=== PATIENT | female | born 1930 | race Caucasian/White ===

== ENCOUNTER 2017-05-07 15:10 | Inpatient (IN) | payer MEDICARE, OTHER ==
[2017-05-07] MEDS ORDERED: Fentanyl 100 MCG/2 ML VIAL ONE (15:59)
[2017-05-07 16:14] LABS: #Basophils 0.1 thou/uL (0.0-0.2); #Eosinphils 0.1 thou/uL (0.0-0.7); #Lymphocytes 3.9 thou/uL (1.20-3.40); #Monocytes 1.7 thou/uL (0.11-0.59); #Neutrophils 10.1 thou/uL (1.40-6.50); %Basophils 0.4 % (0.0-1.0); %Eosinophils 0.7 % (0.0-10.0); %Lymphocytes 24.7 % (21.0-51.0); %Neutrophils 63.3 % (42.0-75.0); Hemoglobin 13.1 g/dL (12.0-16.0); Mean Corpuscular HGB CONC 31.4 g/dL (32.0-36.0); Mean Corpuscular Volume 79.7 fl (81.0-99.0); Mean Platelet Volume 6.1 fL (7.4-10.4); Platelet Count 480 thou/uL (130-400); RBC Distribution Width 16.5 % (11.5-14.5); Red Blood Cell (RBC) Count 5.25 mill/uL (4.20-5.40); White Blood Cell (WBC) Count 15.9 thou/uL (4.8-10.8)
[2017-05-07 16:22] LABS: PTT 26.4 SEC (22.9-36.1)
[2017-05-07 16:38] LABS: ALT (SGPT) 34 U/L (8-55); AST (SGOT) 50 U/L (5-34); Albumin 3.4 g/dL (3.4-4.8); Alkaline Phosphatase 185 U/L (40-150); Anion Gap 14 mmol/L (10-20); BUN (Urea Nitrogen) 8 mg/dL (9.8-20.1); CK (CPK) 281 U/L (29-168); Calc. Creatinine Clearance 0 mL/min (70-130); Carbon Dioxide 29 mmol/L (23-31); Chloride 76 mmol/L (98-107); Estimated GFR-MDRD Greater than 90; Globulin 3.1 g/dL (2.4-3.5); Glucose 112 mg/dL (83-110); Lipase 23 U/L (8-78); Potassium 3.9 mmol/L (3.5-5.1); Protein, Total 6.5 g/dL (6.0-8.3)
[2017-05-07 16:42] LABS: Sodium 115 mmol/L (136-145)
[2017-05-07 16:42] LABS: CKMB 7.6 ng/mL (0-6.6); Osmolality, Serum 242 mOsm/kg (280-295)
[2017-05-07 16:45] LABS: Troponin I 0.016 ng/mL (< 0.028)
--- NOTE | 2017-05-07 17:01 | CT ---
CT LUMBAR SPINE WITH CONTRAST AND SAGITTAL REFORMATIONS: History: Low back pain radiating to bilateral hips and down to both knees, sacral pain. FINDINGS: There are fractures involving the sacral ala inferiorly. There are fractures involving the sacral ala bilaterally. The vertebral body heights in the lumbar spine are maintained. No subluxation is seen. Degenerative changes are present. Bones are osteopenic. No vascular calcifications. Incidental note is made of a 2.8 cm gallstones. No calculi are seen in the kidneys, ureters, or urina ry bladder. No hydroureteronephrosis is present. There is sigmoid diverticulosis. IMPRESSION: 1. Sacral fractures. 2. Cholelithiasis. 3. Sigmoid diverticulosis. POS: [facility]
[2017-05-07 17:52] LABS: Bilirubin Negative (Negative); Blood, Urine Negative (Negative); Clarity CLEAR (Clear); Glucose, Urine (Dipstick) Negative (Negative); Leukocyte Trace (Negative); Nitrite Negative (Negative); Protein, Urine (Dipstick) Negative (Neg-Trace); Specific Gravity, Urine 1.014 (1.002-1.036); pH, Urine 6.5 (5.0-9.0)
[2017-05-07] MEDS ORDERED: Morphine 4 MG/ML VIAL ONE (17:53)
[2017-05-07] MEDS ORDERED: hydrALAZINE 20 MG/ML VIAL ONE (17:53)
[2017-05-07 17:55] LABS: Bacteria/HPF None Seen HPF (None Seen); Hyaline Casts/LPF 0-3 HYALINE CAST LPF (0-3 Hyaline); Pathc Cast-AUWi Flag 0.13 (0-2.49); Squamous Epithelial 0-3 HPF (0-3)
[2017-05-07 18:04] LABS: Renal Epithelial None Seen HPF (0-3); Transitional Epithelial 0-3 HPF (0-3)
[2017-05-07] MEDS ORDERED: Morphine 4 MG/ML Carpuject SLOW IVP PRN (18:24)
[2017-05-07] MEDS ORDERED: Sodium Chloride 0.9% 1,000 ML IV SCH (18:30)
--- NOTE | 2017-05-07 18:39 | CON ---
DATE OF CONSULTATION: 05/07/2017 REASON FOR CONSULTATION: Severe hyponatremia and hypoosmolality. HISTORY OF PRESENT ILLNESS: This is a very pleasant 87-year-old female who had a baseline sodium of 121 on 05/04, presented to the hospital emergency room with a sodium of 115. The patient has no head ache, numbness, tingling, or weakness, but feels a little bit fatigued. The patient has been drinkin g as she pleases and was on IV fluids at the time of examination. The patient is on no diuretic ther apy, but has been in chronic pain for quite some time. PAST MEDICAL HISTORY: Hypertension, history of hip fracture, history of hyponatremia, history of chr onic kidney disease stage 2. All of the past medical history reviewed. SOCIAL ECONOMIC HISTORY: No alcohol or drug use. FAMILY HISTORY: Negative for ESRD. ALLERGIES: Reviewed. HOME MEDICATIONS: List reviewed. REVIEW OF SYSTEMS: A 15-point review of systems was performed and negative except positives as noted above. GENERAL: Weakness- HEAD: Headache- NECK: No swelling or lumps. NOSE: No epistaxis or discharge. EYES: No diplopia or pain. RESPIRATORY: Dyspnea- CARDIOVASCULAR: Chest pain- GASTROINTESTINAL: Nausea- /PACKING CLERK: Hematuria- MUSCULOSKELETAL: No joint pain. NEUROPSYCHIATIC SYSTEMS: No suicidal ideation. No ideation. SKIN: Denies any rash or ulcer. CONSTITUTIONAL: No fever or chills. PHYSICAL EXAMINATION: GENERAL: The patient was awake, alert. VITAL SIGNS: Afebrile, pulse 75, breathing 16, blood pressure 130/70. HEAD/NECK: Normocephalic. Atraumatic. EYES: EOMI. No deformity. EARS: Clear. No ulcers. NOSE: Intact. No lesions. MOUTH: Clear. No discharge. THROAT: Clear. No exudate. LUNGS: Clear. No crackles. CARDIAC: S1, S2. No rub. ABDOMEN: Benign. BS+. GENITALIA/RECTUM: Webb absent. BACK/EXTREMITIES: Edema 0+ Ulcer- NEUROLOGICAL: Alert and motor intact. SKIN: Rash- Bruise- LYMPHATICS: Edema- Ulcer- LABORATORY DATA: Sodium 115, osmolality 240. ASSESSMENT AND RECOMMENDATIONS: 1. 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 Would recommend 1000 mL fluid restriction. The patient should not be on any IV fluids. I have recommended to the primary team that the sodium should be checked every 4 hour s and they should call me with the results. 2. Anemia, stable. 3. Hypertension, stable. 4. Congestive heart failure, fluid restriction, no indication for hypertonic saline. We will monito r the patient every 4 hours. The patient should be observed very, very closely by nursing care.
--- NOTE | 2017-05-07 19:01 | RAD ---
PORTABLE CHEST ONE VIEW: Date: 05-07-17 Time: 4:14 p.m. History: Altered mental status. Comparison: 05-04-17 FINDINGS: The heart is enlarged. There is continued elevation of the right hemidiaphragm. The aorta is tortuous . No lobar consolidation, pneumothoraces, maggie pulmonary edema or pleural effusions are seen. IMPRESSION: No acute process. POS: [facility]
[2017-05-07] MEDS ORDERED: Acetaminophen 325 MG TAB PO PRN (19:08)
[2017-05-07] MEDS: Ketorolac Tromethamine 30 MG/ML VIAL IVP PRN (19:14)
[2017-05-07] MEDS ORDERED: cefTRIAXone\\ROCEPHIN 1 GM in Sterile Water 10 ML SLOW IVP SCH (20:00)
[2017-05-07] MEDS: HYDROcodone/Acetaminophen 10/325 mg Tablet PO PRN (20:25)
[2017-05-07] MEDS: Docusate 100 MG CAP PO SCH (20:25)
[2017-05-07] MEDS: Cyclobenzaprine 10 MG TAB PO SCH (20:25)
[2017-05-07] MEDS: Gabapentin 100 MG CAP PO SCH (20:25)
[2017-05-07 20:49] LABS: Anion Gap 16 mmol/L (10-20); BUN (Urea Nitrogen) 9 mg/dL (9.8-20.1); Calc. Creatinine Clearance 60 mL/min (70-130); Calcium 9.2 mg/dL (7.8-10.44); Carbon Dioxide 30 mmol/L (23-31); Chloride 76 mmol/L (98-107); Estimated GFR-MDRD 79; Glucose 143 mg/dL (83-110); Potassium 3.6 mmol/L (3.5-5.1)
[2017-05-07 20:56] LABS: Sodium 118 mmol/L (136-145)
[2017-05-07] MEDS ORDERED: Famotidine/PF 20 mg/2ml Vial SLOW IVP SCH (21:00)
--- NOTE | 2017-05-07 21:47 | HP ---
DATE OF ADMISSION: 05/07/2017 CHIEF COMPLAINT: Abnormal labs. HISTORY OF PRESENT ILLNESS: This is an 87-year-old white female who has recently had a fall and was diagnosed with sacral fractures and was admitted to rehab for further strengthening. The patient's p ain was poorly controlled over there and they did labs because of her worsening lethargy and weakness , and it showed a sodium level of 115. The patient denied having any dizziness or any nausea or vomi ting. Denied having any chest pain, diarrhea, or constipation. The rest of the labs were normal at this time. The patient had an EKG which was also unremarkable. Had a repeat CT of her back which showed sacral fractures and some cholelithiasis, but otherwise no acute signs of cholecystitis were noted. The pat ient denied having any abdominal pain nor any Newell sign. The patient complains of sacral pain of 9 on 10 in intensity and is not relieved with [place] which she was getting at rehab facility. The pain radiates down the legs, which has been like that for the pa st 2 weeks. The patient has known history of hypertension, which is poorly controlled at this time and her medica tion list is not available at this time. PAST MEDICAL HISTORY: Hypertension. PAST SURGICAL HISTORY: The patient has a history of hysterectomy in the past. SOCIAL HISTORY: The patient is not a known smoker. No history of alcohol. No history of illicit dr ug use. FAMILY HISTORY: No significant family history of coronary artery disease or no history of any cancer s in the family. REVIEW OF SYSTEMS: All 12 systems are reviewed with the patient thoroughly and found to be negative at this time. Systems reviewed are HEENT, CVS, RN MEDICAL SURGICAL, respiratory, GI, , musculoskeletal. Constitutional: Weight loss or gain, sense of well-being, ability to conduct usual activities, exerc ise tolerance. Skin/Breast: Rash, itching, changes in hair growth or loss, nail changes, breast lumps, tenderness, swelling, nipple discharge. Eyes: Vision, double vision, tearing, blind spots, pain. ENT/Mouth: Headaches (location, time of onset, duration, precipitating factors), vertigo, lightheadedness, injury. Vision, double vision, tearing, blind spots, pain, nose b leeding, colds, obstruction, discharge, dental difficulties, gingival bleeding, dentures, neck stiffn ess, pain, tenderness, masses in thyroid or other areas Cardiovascular: Precordial pain, substernal distress, palpitations, syncope, dyspnea on exertion, or thopnea, nocturnal paroxysmal dyspnea, edema, cyanosis, hypertension, heart murmurs, varicosities, ph lebitis, claudication. Respiratory: Pain, shortness of breath, wheezing, stridor, cough, hemoptysis, fever or night sweats Gastrointestinal: Poor appetite, dysphagia, indigestion, abdominal pain, heartburn, eructation, naus ea, vomiting, hematemesis, jaundice, constipation, or diarrhea, abnormal stools (mazin-colored, tarry, bloody, greasy, foul smelling), flatulence, hemorrhoids, recent changes in bowel habits. Genitourinary: Urgency, frequency, dysuria, nocturia, hematuria, polyuria, oliguria, unusual (or maryse nge in) color of urine, stones, hesitancy, change in size of stream, dribbling, acute retention or in continence, libido, potency. Musculoskeletal: Pain, swelling, redness or heat of muscles or joints, limitation, of motion, muscular weakness, atrophy, cramps. Neurologic/Psychiatric: Convulsions, paralyses, tremor, incoordination, parasthesias, difficulties w ith memory of speech, sensory or motor disturbances, or muscular coordination (ataxia, tremor), emoti onal problems, anxiety, depression, previous psychiatric care, unusual perceptions, hallucinations. Allergy/Immunologic: Skin rash, anemia, bleeding tendency, polydipsia, polyuria, intolerance to heat or cold. ALLERGIES: No known drug allergies. HOME MEDICATIONS: Have been reviewed and reconciled. PHYSICAL EXAMINATION: VITAL SIGNS: Blood pressure is 188/77, heart rate is 88, respiration is 18, saturation is 98% on 3 l iters. GENERAL: The patient is moderately built and moderately nourished, does not appear to be in acute di stress at this time. She got a dose of fentanyl in the ER, which relieved her pain at this time. juan is alert and oriented. HEENT: Atraumatic, normocephalic. PERRLA. Extraocular movements were intact. Oral mucosa pink and moist. CARDIOVASCULAR: S1, S2 normal. No murmurs, rubs or gallops. LUNGS: Bilateral air entry was equal. No wheezing, no crackles. ABDOMEN: Soft and nontender. No guarding. No rebound tenderness. Bowel sounds normal. MUSCULOSKELETAL: No calf tenderness. No pedal edema. No joint tenderness. No joint swelling. SKIN: No cyanosis, no erythema, no rash, no pallor. CENTRAL NERVOUS SYSTEM: Cranial examination II-XII intact. No focal deficits are noted at this time . PSYCHIATRIC: No signs of suicidal ideation. No signs of rosita. NODES: Lymphadenopathy, no evidence of any generalized lymph nodes were noted and no evidence of any axillary or cervical lymph nodes were noted. NECK: No thyromegaly. No lymphadenopathy was noted. LABORATORY DATA: Sodium is 115, potassium 3.9, chloride is 76, BUN is 14, creatinine is 0.5, blood s ugar 112, AST is 50, ALT is 34, creatinine is 281. CK-MB 7.6. Serum osmolality 242. WBC is 15.9, hemoglobin is 13.1, hematocrit is 41.9, platelets are 480. UA wa s positive for urinary tract infection. CT of the lumbar spine was done showing an evidence of sacral fractures, history of cholelithiasis an d sigmoid diverticulosis. Chest x-ray was done showed a hazy infiltrate on the right lung and the hilar region, but otherwise n o evidence of any pulmonary edema or pleural effusion were noted. ASSESSMENT AND PLAN: 1. Acute severe hyponatremia. 2. Acute urinary tract infection. 3. Severe leukocytosis, possibly pyelonephritis. 4. Severe pain from the sacral fractures not relieved with oral narcotics. 5. Moderate dehydration. 6. Morbid obesity. 7. Uncontrolled hypertension. ASSESSMENT AND PLAN: 1. Plan is to start the patient on normal saline at this time 75 mL an hour and will do a severe omega e water restriction of 1200 mL per 24 hours. We will consult Nephrology. The patient is not symptom atic at this time for this level of hyponatremia. The cause for hyponatremia is not known at this ti al. We will do some urine studies to look for urine sodium and urine osmolality to see if the patien t has any evidence of syndrome of inappropriate antidiuretic hormone. 2. The patient has severe sacral pain from the fractures. We will start the patient on Toradol 30 m g q.6 hours p.r.n., and will also start the patient on muscle relaxer Flexeril 10 mg p.o. t.i.d., and also start the patient on gabapentin as she has some radiation of the pain bilaterally towards the f eet with gabapentin 100 mg twice a day. We will also start the patient on [place] 10/325 mg p.o. q.4 h ours p.r.n. for pain. 3. The patient has acute urinary tract infection with elevated white count suggestive of possible py elonephritis. We will start the patient on IV Rocephin 1 gram daily and will closely monitor. 4. Hypertension is poorly controlled. We will start the patient on hydralazine 20 mg q.6 hours p.r. n. for blood pressure is more than 160 systolic. 5. DVT prophylaxis, Lovenox 40 mg subcu daily. 6. Code status has been discussed with the patient and she do not want to be resuscitated and she wo uld like to keep it as DNR and DNI. I spent 25 minutes discussing with the code status at this time. 7. The patient has sacral fractures with the plan as above for the pain management. 8. The patient has signs of cholelithiasis on the CT scan. She do not have any abdominal pain. Nor mal liver enzymes at this time. We would not further evaluate at this time unless the patient has an y complaints of any abdominal pain. I spent 75 minutes of this patient.
[2017-05-07] MEDS ORDERED: Metoprolol Tartrate 100 MG TAB PO SCH (23:00)
[2017-05-08] MEDS: HYDROcodone/Acetaminophen 10/325 mg Tablet PO PRN ×3 (00:25→17:44)
[2017-05-08] MEDS: Ketorolac Tromethamine 30 MG/ML VIAL IVP PRN (01:18)
[2017-05-08 04:54] LABS: #Eosinphils 0.1 thou/uL (0.0-0.7); #Lymphocytes 2.4 thou/uL (1.20-3.40); #Monocytes 1.3 thou/uL (0.11-0.59); #Neutrophils 10.3 thou/uL (1.40-6.50); %Basophils 0.3 % (0.0-1.0); %Eosinophils 0.7 % (0.0-10.0); %Lymphocytes 17.1 % (21.0-51.0); %Monocytes 9.4 % (0.0-10.0); %Neutrophils 72.6 % (42.0-75.0); Hemoglobin 11.2 g/dL (12.0-16.0); Mean Corpuscular HGB CONC 32.1 g/dL (32.0-36.0); Mean Corpuscular Volume 77.7 fl (81.0-99.0); Platelet Count 415 thou/uL (130-400); RBC Distribution Width 16.3 % (11.5-14.5); White Blood Cell (WBC) Count 14.2 thou/uL (4.8-10.8)
[2017-05-08 05:09] LABS: Anion Gap 9 mmol/L (10-20); BUN (Urea Nitrogen) 11 mg/dL (9.8-20.1); Calc. Creatinine Clearance 60 mL/min (70-130); Calcium 8.4 mg/dL (7.8-10.44); Carbon Dioxide 34 mmol/L (23-31); Chloride 79 mmol/L (98-107); Estimated GFR-MDRD 79; Glucose 104 mg/dL (83-110); Potassium 3.8 mmol/L (3.5-5.1)
[2017-05-08 05:13] LABS: Sodium 118 mmol/L (136-145)
[2017-05-08] MEDS: Pantoprazole 40 MG VIAL IVP SCH (08:35)
[2017-05-08] MEDS: Enoxaparin Sodium 40 MG/0.4 ML SYRINGE SC SCH (08:35)
[2017-05-08] MEDS: Metoprolol Tartrate 100 MG TAB PO SCH ×2 (08:36→22:19)
[2017-05-08] MEDS: Cyclobenzaprine 10 MG TAB PO SCH ×3 (08:36→22:18)
[2017-05-08] MEDS: Gabapentin 100 MG CAP PO SCH ×2 (08:36→22:18)
[2017-05-08] MEDS: Docusate 100 MG CAP PO SCH ×2 (08:36→22:18)
[2017-05-08 09:00] LABS: Anion Gap 12 mmol/L (10-20); BUN (Urea Nitrogen) 11 mg/dL (9.8-20.1); Calc. Creatinine Clearance 61 mL/min (70-130); Calcium 8.3 mg/dL (7.8-10.44); Carbon Dioxide 31 mmol/L (23-31); Chloride 78 mmol/L (98-107); Estimated GFR-MDRD 79; Glucose 92 mg/dL (83-110); Potassium 3.8 mmol/L (3.5-5.1)
[2017-05-08] MEDS ORDERED: FLU VACC TS2017-18 (>65YR) 0.5 ML SYRINGE IM ONE (09:00)
[2017-05-08 09:05] LABS: Sodium 117 mmol/L (136-145)
[2017-05-08] MEDS ORDERED: Sodium Chloride 0.9% 250 ML 250 ML IV SCH (09:45)
[2017-05-08] MEDS ORDERED: Sodium Chloride 3% 500 ML IVPB SCH (10:00)
--- NOTE | 2017-05-08 11:26 | PRG ---
DATE OF SERVICE: 05/08/2017 SUBJECTIVE: An 87-year-old female being seen for hyponatremia. Patient is slightly somnolent. PHYSICAL EXAMINATION: GENERAL: Patient is resting. VITAL SIGNS: Afebrile, pulse 70, breathing 16, blood pressure was 128/56. OBJECTIVE: See above. Awake, alert, in no acute distress. GENERAL APPEARANCE AND MENTAL STATUS: Fair. HEAD/NECK: Normocephalic. Atraumatic. EYES: EOMI. No deformity. EARS: Clear. No ulcers. NOSE: Intact. No lesions. MOUTH: Clear. No discharge. THROAT: Clear. No exudate. LUNGS: Clear. No crackles. CARDIAC: S1, S2. No rub. ABDOMEN: Benign. BS+. GENITALIA/RECTUM: Webb absent. BACK/EXTREMITIES: Edema 0+ Ulcer- NEUROLOGICAL: Alert and motor intact. SKIN: Rash- Bruise- LYMPHATICS: Edema- Ulcer- LABORATORY: Sodium was 117, creatinine 3.76. ASSESSMENT AND RECOMMENDATIONS: 1. Stage 2, stable. 2. Hyponatremia, most likely because of syndrome of inappropriate antidiuretic hormone secretion and some altered mentation. I will start hypertonic saline as the sodium improved slightly, but is tren ding downwards. I would recommend 800 mL fluid restriction as well. [facility]
--- NOTE | 2017-05-08 11:54 | PDOC.PN ---
- Subjective Encounter Start Date: 05/08/17 Encounter Start Time: 14:20 Subjective: Patient with sacral pain with any movement. Some blisters on left hip -: that patient thinks may have been from some heated towels that were -: too hot. No other complaints. - Objective MAR Reviewed: Yes Vital Signs & Weight: Vital Signs (12 hours) Temp Pulse Pulse BP BP 05/08/17 10:20 68 57 L 163/71 H 124/44 L 05/08/17 03:00 98.3 F Weight Weight 156 lb 1.396 oz Most Recent Monitor Data Heart Rate from ECG 78 NIBP 180/73 NIBP BP-Mean 106 Respiration from ECG 17 SpO2 92 I&O: 05/07/17 05/08/17 05/09/17 06:59 06:59 06:59 Intake Total 100 Output Total 1385 Balance -1285 Result Diagrams: 05/08/17 04:16 05/08/17 12:49 Phys Exam - Physical Examination Constitutional: NAD HEENT: moist MMs Neck: no JVD Respiratory: no wheezing, no rales, no rhonchi Cardiovascular: RRR Gastrointestinal: soft, positive bowel sounds Musculoskeletal: no edema Neurological: non-focal, moves all 4 limbs Psychiatric: normal affect Dx/Plan (1) Hyponatremia Code(s): E87.1 - HYPO-OSMOLALITY AND HYPONATREMIA Status: Acute Comment: Dr. Kt urena, has instituted hypertonic saline and fluid restriction (2) SIADH (syndrome of inappropriate ADH production) Status: Acute (3) Sacral fracture Code(s): S32.10XA - UNSP FRACTURE OF SACRUM, INIT ENCNTR FOR CLOSED FRACTURE Status: Acute (4) Leukocytosis Code(s): D72.829 - ELEVATED WHITE BLOOD CELL COUNT, UNSPECIFIED Status: Acute Comment: Uncertain source, reviewing UA no significant evidence for UTI. Suspect all clinical symptoms from hyponatremia. Will hold on abx for now. - Plan cont current plan of care, PT/OT * . - Discharge Day Encounter end time: 14:40
[2017-05-08 13:16] LABS: Anion Gap 11 mmol/L (10-20); BUN (Urea Nitrogen) 11 mg/dL (9.8-20.1); Calc. Creatinine Clearance 60 mL/min (70-130); Calcium 8.5 mg/dL (7.8-10.44); Carbon Dioxide 31 mmol/L (23-31); Chloride 79 mmol/L (98-107); Estimated GFR-MDRD 78; Glucose 110 mg/dL (83-110); Potassium 3.7 mmol/L (3.5-5.1)
[2017-05-08 13:19] LABS: Sodium 117 mmol/L (136-145)
[2017-05-08] MEDS: Sodium Chloride 0.9% 1,000 ML IV SCH (14:28)
[2017-05-08] MEDS ORDERED: Levothyroxine 175 MCG TAB PO SCH (15:00)
[2017-05-08 16:47] LABS: Anion Gap 11 mmol/L (10-20); BUN (Urea Nitrogen) 12 mg/dL (9.8-20.1); Calc. Creatinine Clearance 58 mL/min (70-130); Calcium 8.7 mg/dL (7.8-10.44); Carbon Dioxide 31 mmol/L (23-31); Chloride 79 mmol/L (98-107); Estimated GFR-MDRD 74; Glucose 123 mg/dL (83-110); Potassium 3.8 mmol/L (3.5-5.1)
[2017-05-08 16:51] LABS: Sodium 117 mmol/L (136-145)
--- NOTE | 2017-05-08 18:09 | ULT ---
RENAL ULTRASOUND: History: Decreased urine output. FINDINGS: Both kidneys appear unremarkable. Both kidneys measure approximately 10 cm in length. There is no cheri dence of hydronephrosis. Cortical echogenicity is preserved and cortical thickness is maintained. A Webb catheter is in place and the urinary bladder is contracted. Incidentally noted is at least one large gallstone in the neck of the gallbladder which measures appr oximately 2.0 cm. IMPRESSION: 1. Unremarkable renal ultrasound. 2. Cholelithiasis is incidentally noted. POS: [facility]
[2017-05-08 18:56] LABS: Anion Gap 17 mmol/L (10-20); BUN (Urea Nitrogen) 13 mg/dL (9.8-20.1); Calc. Creatinine Clearance 59 mL/min (70-130); Calcium 8.3 mg/dL (7.8-10.44); Carbon Dioxide 20 mmol/L (23-31); Chloride 84 mmol/L (98-107); Estimated GFR-MDRD 76; Glucose 134 mg/dL (83-110); Potassium 4.5 mmol/L (3.5-5.1)
[2017-05-08 19:05] LABS: Sodium 116 mmol/L (136-145)
[2017-05-08] MEDS ORDERED: Furosemide 20 MG/2 ML VIAL SLOW IVP SCH (19:30)
--- NOTE | 2017-05-08 21:02 | CON ---
DATE OF CONSULTATION: 05/08/2017 REASON FOR CONSULTATION: Severe hyponatremia. HISTORY OF PRESENT ILLNESS: An 87-year-old very pleasant female who apparently has longstanding hist ory of dizziness, hypertension, atrial fibrillation. According to the son, fell, sustained a fractur e of the coccyx. Lumbar spine CT was done, which shows sacral fracture inferiorly. Vertebral body heights, lumbar spine maintain. also gallstones. SOCIAL HISTORY: She is a nonsmoker, no history of alcohol abuse. Patient denies any chest pain, chi lls, sweats, or cough. HOME MEDICATIONS: Includes a long list of medication including Synthroid 150, hydrochlorothiazide 12 .5, metoprolol 100 a day, aspirin 325 mg, amlodipine 5, calcium, magnesium, Protonix 40, simethicone 80, catapres 0.1, guaifenesin. ALLERGIES: AMOXICILLIN, CODEINE, SULFA. PREVIOUS SURGERIES: Included a sinus surgery. REVIEW OF SYSTEMS: Otherwise, 10-point negative. PHYSICAL EXAMINATION: GENERAL: The patient appears in no acute distress. VITAL SIGNS: Blood pressure 177/83, pulse 106, temperature 98.2, respiration rate 18. CHEST: Decreased breath sounds, no wheezing. CARDIAC: Normal S1. ABDOMEN: Soft, no masses. LABORATORY DATA: Sodium 117. White count 14.2, platelet count 415. Electrolytes are normal. Chest x-ray shows a questionable right upper lung infiltrate. Patient has severe hyponatremia, probably secondary to hydrochlorothiazide. atrial fibrillation . Overall, normal renal function. Sacral fracture, vertigo. I would continue normal saline at , slow hydration. Continue empiric antibiotics. Aggressive P T, supportive care. Deep venous thrombosis prophylaxis. I will follow. Critical care note 45 minutes.
[2017-05-08 21:41] LABS: Sodium 119 mmol/L (136-145)
[2017-05-09] MEDS: Sodium Chloride 0.9% 1,000 ML IV SCH ×3 (01:17→20:53)
[2017-05-09] MEDS ORDERED: Furosemide 20 MG TAB PO SCH (02:00)
[2017-05-09] MEDS ORDERED: Furosemide 20 MG/2 ML VIAL SLOW IVP SCH ×2 (02:00→20:00)
[2017-05-09] MEDS: HYDROcodone/Acetaminophen 10/325 mg Tablet PO PRN ×3 (02:57→20:46)
[2017-05-09 05:13] LABS: Anion Gap 13 mmol/L (10-20); BUN (Urea Nitrogen) 13 mg/dL (9.8-20.1); Calc. Creatinine Clearance 63 mL/min (70-130); Calcium 7.9 mg/dL (7.8-10.44); Carbon Dioxide 26 mmol/L (23-31); Chloride 84 mmol/L (98-107); Estimated GFR-MDRD 81; Glucose 99 mg/dL (83-110); Potassium 3.5 mmol/L (3.5-5.1)
[2017-05-09 05:17] LABS: Sodium 119 mmol/L (136-145)
[2017-05-09] MEDS ORDERED: Levothyroxine 150 MCG TAB PO SCH (06:00)
[2017-05-09] MEDS: Levothyroxine 175 MCG TAB PO SCH (06:15)
--- NOTE | 2017-05-09 08:13 | PRG ---
The patient appears to be somewhat better this morning. She is awake and responsive, weak, less pain . PHYSICAL EXAMINATION: VITAL SIGNS: Blood pressure is 140/53, sats 100%, respiration rate 18, temperature 99. CHEST: Chest reveals decreased breath sounds, no wheezing. CARDIAC: Normal S1, S2. LABORATORY: Sodium 119. Electrolytes otherwise normal. IMPRESSION: 1. Hyponatremia, probably secondary to HTZ. 2. Hypothyroidism. 3. History of hypertension. 4. Atrial fibrillation. PLAN: Continue saline. Avoid Lasix. PT aggressive. Supportive care. Pain relief. We will follow. One-half hour critical care time.
[2017-05-09 09:04] LABS: Anion Gap 14 mmol/L (10-20); BUN (Urea Nitrogen) 14 mg/dL (9.8-20.1); Calc. Creatinine Clearance 79 mL/min (70-130); Calcium 8.5 mg/dL (7.8-10.44); Carbon Dioxide 28 mmol/L (23-31); Chloride 82 mmol/L (98-107); Estimated GFR-MDRD 83; Glucose 103 mg/dL (83-110); Potassium 3.9 mmol/L (3.5-5.1); Sodium 120 mmol/L (136-145)
[2017-05-09] MEDS: Cyclobenzaprine 10 MG TAB PO SCH ×3 (09:12→20:39)
[2017-05-09] MEDS: Enoxaparin Sodium 40 MG/0.4 ML SYRINGE SC SCH (09:12)
[2017-05-09] MEDS: Docusate 100 MG CAP PO SCH ×2 (09:12→20:39)
[2017-05-09] MEDS: Gabapentin 100 MG CAP PO SCH ×2 (09:13→20:39)
[2017-05-09] MEDS: Metoprolol Tartrate 100 MG TAB PO SCH ×2 (09:13→20:39)
[2017-05-09] MEDS: Pantoprazole 40 MG VIAL IVP SCH (09:14)
--- NOTE | 2017-05-09 09:48 | PRG ---
DATE OF SERVICE: 05/09/2017 SUBJECTIVE: This is an 87-year-old female being seen for hyponatremia. Patient denies any nausea, v omiting or chest pain. PHYSICAL EXAMINATION: GENERAL: Patient is awake, alert. VITAL SIGNS: Afebrile, pulse 75, breathing 16, blood pressure 141/53. HEAD/NECK: Normocephalic. Atraumatic. EYES: EOMI. No deformity. EARS: Clear. No ulcers. NOSE: Intact. No lesions. MOUTH: Clear. No discharge. THROAT: Clear. No exudate. LUNGS: Clear. No crackles. CARDIAC: S1, S2. No rub. ABDOMEN: Benign. BS+. GENITALIA/RECTUM: Webb absent. BACK/EXTREMITIES: Edema 0+ Ulcer- NEUROLOGICAL: Alert and motor intact. SKIN: Rash- Bruise- LYMPHATICS: Edema- Ulcer- LABORATORY DATA: Show sodium is 120, potassium 3.9. ASSESSMENT AND RECOMMENDATIONS: 1. Hyponatremia, multifactorial due to hypothyroidism as well as decreased effective arterial blood volume. We will continue hydration with saline and Lasix. 2. Chronic kidney disease, stage II, stable. 3. Hypertension, stable. 4. Medications based on glomerular filtration rate are appropriate.
[2017-05-09 15:05] LABS: Anion Gap 12 mmol/L (10-20); BUN (Urea Nitrogen) 14 mg/dL (9.8-20.1); Calc. Creatinine Clearance 75 mL/min (70-130); Calcium 8.4 mg/dL (7.8-10.44); Carbon Dioxide 29 mmol/L (23-31); Chloride 80 mmol/L (98-107); Estimated GFR-MDRD 78; Glucose 135 mg/dL (83-110); Potassium 3.9 mmol/L (3.5-5.1)
[2017-05-09 15:12] LABS: Sodium 117 mmol/L (136-145)
--- NOTE | 2017-05-09 16:01 | PDOC.PN ---
- Subjective Encounter Start Date: 05/09/17 Encounter Start Time: 11:30 -: old records requested/rev pt feeling okay, pain in pelvis still severe but better. No f/C, no N/V/D/C, sara po, still feels weak. Son at [facility], updated to results and current plan 10 point ROS performed and neg for all systems except as per HPI - Objective MAR Reviewed: Yes Vital Signs & Weight: Vital Signs (12 hours) Temp Pulse Pulse Pulse Resp BP BP 05/09/17 13:40 63 59 L 205/61 H 160/57 H 05/09/17 10:40 70 70 134/56 L 138/60 05/09/17 08:00 96.8 F L 72 18 Pulse Ox Pulse Ox Pulse Ox 05/09/17 13:40 97 100 05/09/17 10:40 05/09/17 08:00 100 Weight Admit Weight 154 lb 15.759 oz Weight 194 lb 7.163 oz Most Recent Monitor Data Heart Rate from ECG 58 NIBP 134/61 NIBP BP-Mean 92 Respiration from ECG 16 SpO2 100 I&O: 05/08/17 05/09/17 05/10/17 06:59 06:59 06:59 Intake Total 100 1693 Output Total 1385 614 405 Balance -1285 1079 -405 Result Diagrams: 05/10/17 04:45 05/10/17 04:45 Radiology Reviewed by me: Yes EKG Reviewed by me: Yes Phys Exam - Physical Examination Constitutional: NAD HEENT: PERRLA, moist MMs, sclera anicteric, oral pharynx no lesions Neck: no nodes, no JVD, supple, full ROM Respiratory: no wheezing, no rales, no rhonchi, clear to auscultation bilateral Cardiovascular: RRR, no significant murmur, no rub Gastrointestinal: soft, non-tender, no distention, positive bowel sounds Musculoskeletal: edema present Neurological: non-focal, normal sensation, moves all 4 limbs Lymphatic: no nodes Psychiatric: normal affect, A&O x 3 Skin: no rash, normal turgor, cap refill <2 seconds Dx/Plan (1) Hyponatremia Code(s): E87.1 - HYPO-OSMOLALITY AND HYPONATREMIA Status: Acute Comment: Dr. Meraz following, has instituted hypertonic saline and fluid restriction (2) Leukocytosis Code(s): D72.829 - ELEVATED WHITE BLOOD CELL COUNT, UNSPECIFIED Status: Acute Comment: Uncertain source, reviewing UA no significant evidence for UTI. Suspect all clinical symptoms from hyponatremia. Will hold on abx for now. (3) SIADH (syndrome of inappropriate ADH production) Status: Acute (4) Sacral fracture Code(s): S32.10XA - UNSP FRACTURE OF SACRUM, INIT ENCNTR FOR CLOSED FRACTURE Status: Acute Qualifiers: Encounter type: initial encounter Zone of sacrum fracture: unspecified portion of sacrum Fracture type: closed Qualified Code(s): S32.10XA - Unspecified fracture of sacrum, initial encounter for closed fracture - Plan cont current plan of care, plan discussed w/ family, PT/OT, out of bed/ambulate * .
[2017-05-09 19:33] LABS: Sodium 119 mmol/L (136-145)
[2017-05-09 22:24] LABS: Anion Gap 12 mmol/L (10-20); BUN (Urea Nitrogen) 12 mg/dL (9.8-20.1); Calc. Creatinine Clearance 92 mL/min (70-130); Calcium 8.3 mg/dL (7.8-10.44); Carbon Dioxide 29 mmol/L (23-31); Chloride 83 mmol/L (98-107); Estimated GFR-MDRD Greater than 90; Glucose 111 mg/dL (83-110); Sodium 120 mmol/L (136-145)
[2017-05-10] MEDS: HYDROcodone/Acetaminophen 10/325 mg Tablet PO PRN ×2 (04:47→21:03)
[2017-05-10 04:57] LABS: #Eosinphils 0.1 thou/uL (0.0-0.7); #Lymphocytes 2.8 thou/uL (1.20-3.40); #Monocytes 1.4 thou/uL (0.11-0.59); #Neutrophils 7.1 thou/uL (1.40-6.50); %Basophils 0.3 % (0.0-1.0); %Eosinophils 1.2 % (0.0-10.0); %Monocytes 12.4 % (0.0-10.0); %Neutrophils 62.1 % (42.0-75.0); Hemoglobin 10.8 g/dL (12.0-16.0); Mean Corpuscular HGB CONC 31.8 g/dL (32.0-36.0); Mean Corpuscular Hemoglobin 25.2 pg (27.0-31.0); Mean Corpuscular Volume 79.2 fl (81.0-99.0); Mean Platelet Volume 5.6 fL (7.4-10.4); Platelet Count 379 thou/uL (130-400); RBC Distribution Width 16.6 % (11.5-14.5); Red Blood Cell (RBC) Count 4.28 mill/uL (4.20-5.40); White Blood Cell (WBC) Count 11.5 thou/uL (4.8-10.8)
[2017-05-10] MEDS: Levothyroxine 175 MCG TAB PO SCH (05:12)
[2017-05-10 05:21] LABS: Anion Gap 9 mmol/L (10-20); BUN (Urea Nitrogen) 12 mg/dL (9.8-20.1); Calc. Creatinine Clearance 83 mL/min (70-130); Calcium 8.3 mg/dL (7.8-10.44); Carbon Dioxide 31 mmol/L (23-31); Chloride 84 mmol/L (98-107); Estimated GFR-MDRD Greater than 90; Glucose 96 mg/dL (83-110); Magnesium 1.9 mg/dL (1.6-2.6); Potassium 3.8 mmol/L (3.5-5.1); Sodium 120 mmol/L (136-145)
--- NOTE | 2017-05-10 08:09 | PRG ---
DATE OF SERVICE: 05/10/2017 Ms. Diamond appears to be better. She has less pain, less shortness of breath. PHYSICAL EXAMINATION: VITAL SIGNS: Blood pressure 142/50, pulse 72, sats 100%. I's & O's have been good, 1693, 614 out. CHEST: No wheezing or crackles. CARDIAC: Normal S1, S2. ABDOMEN: Soft, no masses. LABORATORY: Platelet count is normal. White count 11,000. Sodium is 120. IMPRESSION: 1. Hyponatremia, probably secondary to HTZ. 2. Chronic severe pain. 3. Severe deconditioning. PLAN: Continue slow hydration. She can be transferred out of the ICU.
[2017-05-10] MEDS: Metoprolol Tartrate 100 MG TAB PO SCH ×2 (08:55→21:01)
[2017-05-10] MEDS: Docusate 100 MG CAP PO SCH ×2 (08:55→21:00)
[2017-05-10] MEDS: Cyclobenzaprine 10 MG TAB PO SCH ×3 (08:55→21:00)
[2017-05-10] MEDS: Gabapentin 100 MG CAP PO SCH ×2 (08:55→21:00)
[2017-05-10] MEDS: Enoxaparin Sodium 40 MG/0.4 ML SYRINGE SC SCH (08:55)
[2017-05-10] MEDS ORDERED: Furosemide 40 MG/4 ML VIAL ONE (10:41)
[2017-05-10] MEDS ORDERED: Furosemide 20 MG/2 ML VIAL SLOW IVP SCH (11:00)
--- NOTE | 2017-05-10 12:22 | PDOC.PN ---
- Subjective Encounter Start Date: 05/10/17 Encounter Start Time: 10:50 Pt states pain down to 8/10. no f/C,no N/V/D/C. Dr Meraz in earlier, was going to make changes, sodium unchanged. cleared by Pulm to move out of the ICU 10 point ROS performed and neg for all systems except as per HPI - Objective MAR Reviewed: Yes Vital Signs & Weight: Vital Signs (12 hours) Temp Pulse Ox 05/10/17 10:36 99 05/10/17 07:00 97.9 F 05/10/17 03:00 97.8 F Weight Admit Weight 154 lb 15.759 oz Weight 179 lb 3.773 oz Most Recent Monitor Data Heart Rate from ECG 64 NIBP 174/75 NIBP BP-Mean 104 Respiration from ECG 15 SpO2 99 I&O: 05/09/17 05/10/17 05/11/17 06:59 06:59 06:59 Intake Total 1693 1400 240 Output Total 614 1520 300 Balance 1079 -120 -60 Result Diagrams: 05/10/17 04:45 05/10/17 04:45 Phys Exam - Physical Examination Constitutional: NAD HEENT: PERRLA, moist MMs, sclera anicteric, oral pharynx no lesions Neck: no nodes, no JVD, supple, full ROM Respiratory: no wheezing, no rales, no rhonchi, clear to auscultation bilateral Cardiovascular: RRR, no significant murmur, no rub Gastrointestinal: soft, non-tender, no distention, positive bowel sounds Musculoskeletal: pulses present, edema present Neurological: non-focal, normal sensation, moves all 4 limbs Lymphatic: no nodes Psychiatric: normal affect, A&O x 3 Skin: no rash, normal turgor, cap refill <2 seconds Dx/Plan (1) Hyponatremia Code(s): E87.1 - HYPO-OSMOLALITY AND HYPONATREMIA Status: Acute Comment: Dr. Meraz following, has instituted hypertonic saline and fluid restriction (2) Leukocytosis Code(s): D72.829 - ELEVATED WHITE BLOOD CELL COUNT, UNSPECIFIED Status: Acute Comment: Uncertain source, reviewing UA no significant evidence for UTI. Suspect all clinical symptoms from hyponatremia. Will hold on abx for now. (3) SIADH (syndrome of inappropriate ADH production) Status: Acute (4) Sacral fracture Code(s): S32.10XA - UNSP FRACTURE OF SACRUM, INIT ENCNTR FOR CLOSED FRACTURE Status: Acute Qualifiers: Encounter type: initial encounter Zone of sacrum fracture: unspecified portion of sacrum Fracture type: closed Qualified Code(s): S32.10XA - Unspecified fracture of sacrum, initial encounter for closed fracture - Plan cont current plan of care, PT/OT, out of bed/ambulate * . to floor when okay with nephrology
--- NOTE | 2017-05-10 12:24 | PRG ---
DATE OF SERVICE: 05/10/2017 SUBJECTIVE: An 87-year-old female being seen for hyponatremia. Hyponatremia is being managed by [facility]. PHYSICAL EXAMINATION: GENERAL: Patient is resting. VITAL SIGNS: Afebrile, pulse 60, breathing 16, blood pressure 152/54. HEAD: Normocephalic, atraumatic. NECK: Supple. CHEST: Symmetrical and clear. CARDIOVASCULAR: S1 and S2, no rub. ABDOMEN: Bowel sounds positive. EXTREMITIES: Show no edema. LABORATORY DATA: Show sodium 120. ASSESSMENT AND RECOMMENDATIONS: Hyponatremia, multifactorial. This is being followed by Pulmonary, so I will sign off on this patient. Please reconsult as needed.
[2017-05-10 12:59] LABS: Anion Gap 11 mmol/L (10-20); BUN (Urea Nitrogen) 11 mg/dL (9.8-20.1); Calc. Creatinine Clearance 79 mL/min (70-130); Calcium 7.9 mg/dL (7.8-10.44); Carbon Dioxide 28 mmol/L (23-31); Chloride 85 mmol/L (98-107); Estimated GFR-MDRD Greater than 90; Glucose 137 mg/dL (83-110); Potassium 4.3 mmol/L (3.5-5.1); Sodium 120 mmol/L (136-145)
[2017-05-10] MEDS: Sodium Chloride 0.9% 1,000 ML IV SCH ×2 (15:09→22:41)
[2017-05-11] MEDS: Sodium Chloride 0.9% 1,000 ML IV SCH ×2 (03:10→08:11)
[2017-05-11] MEDS: Levothyroxine 175 MCG TAB PO SCH (05:55)
[2017-05-11] MEDS: Docusate 100 MG CAP PO SCH ×2 (08:09→20:53)
[2017-05-11] MEDS: Cyclobenzaprine 10 MG TAB PO SCH ×3 (08:10→20:52)
[2017-05-11] MEDS: Enoxaparin Sodium 40 MG/0.4 ML SYRINGE SC SCH (08:10)
[2017-05-11] MEDS: Gabapentin 100 MG CAP PO SCH ×2 (08:10→20:52)
[2017-05-11] MEDS: Metoprolol Tartrate 100 MG TAB PO SCH ×2 (08:10→21:32)
[2017-05-11 09:08] LABS: Anion Gap 10 mmol/L (10-20); BUN (Urea Nitrogen) 5 mg/dL (9.8-20.1); Calc. Creatinine Clearance 102 mL/min (70-130); Carbon Dioxide 28 mmol/L (23-31); Chloride 90 mmol/L (98-107); Estimated GFR-MDRD Greater than 90; Glucose 120 mg/dL (83-110); Potassium 3.5 mmol/L (3.5-5.1); Sodium 124 mmol/L (136-145)
--- NOTE | 2017-05-11 09:31 | PRG ---
DATE OF SERVICE: 05/11/2017 This morning is awake, alert, responsive, appears to be much improved. PHYSICAL EXAMINATION: VITAL SIGNS: Blood pressure 170/60, sats 100% on 2 liters, respirations 19, temperature 98. CHEST: Chest revealed no wheezing. CARDIAC: Normal S1, S2. ABDOMEN: Soft, no masses. No electrolytes were ordered today, one is being ordered.. IMPRESSION: 1. Severe hyponatremia, probably secondary to HTZ. 2. Severe deconditioning. 3. Fractured coccyx. PLAN: Pain relief, supportive care, lab. Hopefully, she can be discharged back to the intermediate in the next day or 2.
[2017-05-11] MEDS ORDERED: Sodium Chloride 1 GM TAB PO SCH (11:30)
[2017-05-11 12:02] VITALS: BMI 29.2
--- NOTE | 2017-05-11 12:54 | PDOC.PN ---
- Subjective Encounter Start Date: 05/11/17 Encounter Start Time: 12:00 Pt without pain when lying still now, stil with some pain with movement. breathing is fine, no f/C, no n/V/d/c. diesnt feel as well today. Na up to 124. no overnight events. Case discussed with case management, referral to SNF in [place] made, dont accept on weekend. 10 point ROS performed and neg for all systems except as per HPI - Objective Resuscitation Status: full MAR Reviewed: Yes Vital Signs & Weight: Vital Signs (12 hours) Temp Pulse Resp BP Pulse Ox 05/11/17 09:35 77 18 169/61 H 100 05/11/17 08:15 96.0 F L 77 19 99 05/11/17 07:51 96.0 F L 77 19 172/60 H 100 05/11/17 03:57 98.8 F 78 17 143/56 H 100 05/11/17 01:14 98 Weight Admit Weight 154 lb 15.759 oz Weight 186 lb 14.4 oz Most Recent Monitor Data Heart Rate from ECG 65 NIBP 168/67 NIBP BP-Mean 95 Respiration from ECG 17 SpO2 100 I&O: 05/10/17 05/11/17 05/12/17 06:59 06:59 06:59 Intake Total 1400 2854 540 Output Total 1520 3200 900 Balance -120 -346 -360 Result Diagrams: 05/10/17 04:45 05/11/17 08:32 Phys Exam - Physical Examination Constitutional: NAD HEENT: PERRLA, moist MMs, sclera anicteric, oral pharynx no lesions Neck: no nodes, no JVD, supple, full ROM Respiratory: no wheezing coarse bilateral breathsounds, bibasilar rales. no wheezes Cardiovascular: RRR, no significant murmur, no rub Gastrointestinal: soft, non-tender, no distention, positive bowel sounds Musculoskeletal: pulses present, edema present Neurological: non-focal, normal sensation, moves all 4 limbs Lymphatic: no nodes Psychiatric: normal affect, A&O x 3 Skin: no rash, normal turgor, cap refill <2 seconds Dx/Plan (1) Hyponatremia Code(s): E87.1 - HYPO-OSMOLALITY AND HYPONATREMIA Status: Acute Comment: Dr. Meraz signed off. Na bumpecd to 124 today. stop NS, ithink shes getting overloaded. NaCl Tabs ordered BID, recheck in AM (2) Leukocytosis Code(s): D72.829 - ELEVATED WHITE BLOOD CELL COUNT, UNSPECIFIED Status: Resolved Comment: Uncertain source, reviewing UA no significant evidence for UTI. Suspect all clinical symptoms from hyponatremia. Will hold on abx for now. 11.5 on 05/10 (3) SIADH (syndrome of inappropriate ADH production) Status: Acute (4) Sacral fracture Code(s): S32.10XA - UNSP FRACTURE OF SACRUM, INIT ENCNTR FOR CLOSED FRACTURE Status: Acute Qualifiers: Encounter type: initial encounter Zone of sacrum fracture: unspecified portion of sacrum Fracture type: closed Qualified Code(s): S32.10XA - Unspecified fracture of sacrum, initial encounter for closed fracture Comment: pain control, OOB and ambulate with PT. to SNF in [place] for rehab - Plan cont current plan of care, plan discussed w/ family, PT/OT, respiratory therapy , out of bed/ambulate * .
[2017-05-11] MEDS ORDERED: Furosemide 20 MG/2 ML VIAL SLOW IVP SCH (13:00)
[2017-05-11] MEDS: Sodium Chloride 1 GM TAB PO SCH (20:53)
[2017-05-12 05:37] LABS: #Basophils 0.1 thou/uL (0.0-0.2); #Lymphocytes 2.3 thou/uL (1.20-3.40); #Monocytes 0.8 thou/uL (0.11-0.59); #Neutrophils 7.6 thou/uL (1.40-6.50); %Basophils 0.5 % (0.0-1.0); %Eosinophils 0.5 % (0.0-10.0); %Lymphocytes 21.3 % (21.0-51.0); %Monocytes 7.4 % (0.0-10.0); %Neutrophils 70.3 % (42.0-75.0); Hemoglobin 11.6 g/dL (12.0-16.0); Mean Corpuscular HGB CONC 30.7 g/dL (32.0-36.0); Mean Corpuscular Volume 81.6 fl (81.0-99.0); Mean Platelet Volume 6.2 fL (7.4-10.4); Platelet Count 322 thou/uL (130-400); RBC Distribution Width 17.5 % (11.5-14.5); Red Blood Cell (RBC) Count 4.63 mill/uL (4.20-5.40); White Blood Cell (WBC) Count 10.9 thou/uL (4.8-10.8)
[2017-05-12] MEDS: Levothyroxine 175 MCG TAB PO SCH (05:46)
[2017-05-12 06:01] LABS: Anion Gap 11 mmol/L (10-20); BUN (Urea Nitrogen) Less than 4 mg/dL (9.8-20.1); Calc. Creatinine Clearance 111 mL/min (70-130); Calcium 8.9 mg/dL (7.8-10.44); Carbon Dioxide 32 mmol/L (23-31); Chloride 85 mmol/L (98-107); Estimated GFR-MDRD Greater than 90; Glucose 118 mg/dL (83-110); Magnesium 1.7 mg/dL (1.6-2.6); Potassium 3.5 mmol/L (3.5-5.1); Sodium 124 mmol/L (136-145)
[2017-05-12] MEDS ORDERED: Acetaminophen 325 MG TAB PO PRN (06:30)
[2017-05-12] MEDS: Sodium Chloride 1 GM TAB PO SCH ×2 (07:56→20:44)
[2017-05-12] MEDS: Enoxaparin Sodium 40 MG/0.4 ML SYRINGE SC SCH (07:56)
[2017-05-12] MEDS: Cyclobenzaprine 10 MG TAB PO SCH ×3 (07:56→20:44)
[2017-05-12] MEDS: Gabapentin 100 MG CAP PO SCH ×2 (07:57→20:45)
[2017-05-12] MEDS: Docusate 100 MG CAP PO SCH ×2 (07:57→20:44)
[2017-05-12] MEDS: Metoprolol Tartrate 100 MG TAB PO SCH ×2 (07:57→20:45)
--- NOTE | 2017-05-12 09:02 | PRG ---
DATE OF SERVICE: 05/12/2017 Ms. Diamond looks better this morning. PHYSICAL EXAMINATION: VITAL SIGNS: Sats are 96% on room air, respiration 16, temperature 98, blood pressure is markedly el evated at 204/77. CHEST: Minimal rhonchi. CARDIAC: Normal S1. ABDOMEN: Soft. No masses. LABORATORY: Sodium 124. Electrolytes are normal. White count 11,000. IMPRESSION: 1. Hyponatremia secondary to HTZ. 2. Uncontrolled hypertension. 3. Chronic pain. PLAN: I am going to stop the fentanyl. She can continue [place] as prescribed. Control blood pressur e.
[2017-05-12] MEDS: cloNIDine 0.2 MG TAB PO SCH ×2 (09:20→20:45)
[2017-05-12] MEDS: Ondansetron HCl/PF 4 MG/2 ML Vial IVP PRN (21:19)
--- NOTE | 2017-05-12 22:22 | PDOC.PN ---
- Subjective Encounter Start Date: 05/12/17 Encounter Start Time: 09:40 Pt feeling a little better today. No F/c, no N/V/D/c. No pain at present. Na still 124, informed case management not ready to go anywhere. Awaiting approval for SNF in [place]. No F/C, no N/V/D/c, no CP or SOB at present 10 point ROS performed and neg for all systems except as per HPI - Objective MAR Reviewed: Yes Vital Signs & Weight: Vital Signs (12 hours) Temp Pulse Resp BP BP Pulse Ox 05/12/17 20:45 190/71 H 05/12/17 20:41 98.0 F 100 20 190/71 H 96 05/12/17 19:18 98.0 F 100 20 96 05/12/17 11:00 98.4 F 72 18 129/63 92 L Weight Admit Weight 154 lb 15.759 oz Weight 186 lb 14.4 oz Most Recent Monitor Data Heart Rate from ECG 65 NIBP 168/67 NIBP BP-Mean 95 Respiration from ECG 17 SpO2 100 I&O: 05/11/17 05/12/17 05/13/17 06:59 06:59 06:59 Intake Total 2854 1861 680 Output Total 3200 5450 300 Balance -346 -9091 380 Result Diagrams: 05/12/17 05:11 05/13/17 04:10 Phys Exam - Physical Examination Constitutional: NAD HEENT: PERRLA, moist MMs, sclera anicteric, oral pharynx no lesions Neck: no nodes, no JVD, supple, full ROM Respiratory: no wheezing, no rales, no rhonchi, clear to auscultation bilateral Cardiovascular: RRR, no significant murmur, no rub Gastrointestinal: soft, non-tender, no distention, positive bowel sounds Musculoskeletal: pulses present, edema present Neurological: non-focal, normal sensation, moves all 4 limbs Lymphatic: no nodes Psychiatric: normal affect, A&O x 3 Skin: no rash, normal turgor, cap refill <2 seconds Dx/Plan (1) Hyponatremia Code(s): E87.1 - HYPO-OSMOLALITY AND HYPONATREMIA Status: Acute Comment: Dr. Meraz signed off. Na bumpecd to 124 today. stop NS, ithink shes getting overloaded. NaCl Tabs ordered BID, recheck in AM. Starting to get a little volume up. Stop IV fluids, lasix prn, (2) Leukocytosis Code(s): D72.829 - ELEVATED WHITE BLOOD CELL COUNT, UNSPECIFIED Status: Resolved Comment: Uncertain source, reviewing UA no significant evidence for UTI. Suspect all clinical symptoms from hyponatremia. Will hold on abx for now. 11.5 on 05/10 (3) SIADH (syndrome of inappropriate ADH production) Status: Acute (4) Sacral fracture Code(s): S32.10XA - UNSP FRACTURE OF SACRUM, INIT ENCNTR FOR CLOSED FRACTURE Status: Acute Qualifiers: Encounter type: initial encounter Zone of sacrum fracture: unspecified portion of sacrum Fracture type: closed Qualified Code(s): S32.10XA - Unspecified fracture of sacrum, initial encounter for closed fracture Comment: pain control, OOB and ambulate with PT. to SNF in [place] for rehab - Plan cont current plan of care, PT/OT, social welfare administrator, out of bed/ambulate, DVT proph w/heparin * .
[2017-05-13 05:11] LABS: Anion Gap 13 mmol/L (10-20); BUN (Urea Nitrogen) 15 mg/dL (9.8-20.1); Calc. Creatinine Clearance 96 mL/min (70-130); Calcium 8.7 mg/dL (7.8-10.44); Carbon Dioxide 31 mmol/L (23-31); Chloride 84 mmol/L (98-107); Estimated GFR-MDRD Greater than 90; Glucose 153 mg/dL (83-110); Magnesium 1.8 mg/dL (1.6-2.6); Potassium 3.5 mmol/L (3.5-5.1); Sodium 124 mmol/L (136-145)
[2017-05-13] MEDS: Levothyroxine 175 MCG TAB PO SCH (05:34)
[2017-05-13] MEDS: Sodium Chloride 1 GM TAB PO SCH ×2 (08:44→21:25)
[2017-05-13] MEDS: Metoprolol Tartrate 100 MG TAB PO SCH ×2 (08:44→21:25)
[2017-05-13] MEDS: Cyclobenzaprine 10 MG TAB PO SCH ×3 (08:45→21:20)
[2017-05-13] MEDS: Furosemide 40 MG/4 ML VIAL SLOW IVP SCH (08:45)
[2017-05-13] MEDS: Docusate 100 MG CAP PO SCH ×2 (08:45→21:24)
[2017-05-13] MEDS: cloNIDine 0.2 MG TAB PO SCH ×2 (08:45→21:23)
[2017-05-13] MEDS: Gabapentin 100 MG CAP PO SCH ×2 (08:45→21:24)
[2017-05-13] MEDS: Enoxaparin Sodium 40 MG/0.4 ML SYRINGE SC SCH (08:45)
[2017-05-13] MEDS: Ondansetron HCl/PF 4 MG/2 ML Vial IVP PRN (08:54)
[2017-05-13] MEDS ORDERED: Calcium Carbonate 500 MG ChewTAB PO PRN (09:14)
[2017-05-13] MEDS ORDERED: Pantoprazole 40 MG VIAL IVP SCH (09:45)
[2017-05-13 10:38] LABS: ALT (SGPT) 340 U/L (8-55); AST (SGOT) 516 U/L (5-34); Albumin 2.7 g/dL (3.4-4.8); Alkaline Phosphatase 576 U/L (40-150); Bilirubin, Total 5.8 mg/dL (0.2-1.2); Protein, Total 5.1 g/dL (6.0-8.3)
--- NOTE | 2017-05-13 11:28 | RAD ---
CHEST 1 VIEW: HISTORY: An 87-year-old female with a history of coarse breath sounds, possible aspiration versus edema. COMPARISON: 05/07/17. FINDINGS: Minimal cardiomegaly. Right hemidiaphragm elevation with some minimal increased parenchymal changes in the right infrahilar region and right lower lung zone but stable from 05/07. The left chest appear s clear, except for blunting of the left costophrenic angles which also appears stable. IMPRESSION: Stable left costophrenic angle blunting and pleural and parenchymal opacity changes in the right base with right hemidiaphragm elevation. No significant new process. Consider short-term followup uprig ht PA and lateral chest when the patient can undergo that study. POS: IKE
[2017-05-13] MEDS ORDERED: Tolvaptan 15 MG TAB PO SCH (12:00)
--- NOTE | 2017-05-13 12:37 | EKG ---
Test Reason : Blood Pressure : / mmHG Vent. Rate : 071 BPM Atrial Rate : 083 BPM P-R Int : 000 ms QRS Dur : 126 ms QT Int : 434 ms P-R-T Axes : 000 -21 -17 degrees QTc Int : 471 ms Atrial fibrillation Right bundle branch block Abnormal ECG Confirmed by LESTER CARRENO, MACY ([id number]), publications editor VITO BREWER ([id number]) on 05/13/2017 12:36:10 PM Referred By: Confirmed By:MACY BATISTA MD
--- NOTE | 2017-05-13 14:12 | PDOC.PN ---
- Subjective Encounter Start Date: 05/13/17 Encounter Start Time: 09:30 Pt doesnt feel well today. NO F/c, denies nausea, no CP, nos SOB. Had indigestion earlier. on my arrival she cough and up came a few drop of her diet coke. She then vomite dup more. Stat PCXR ordered, zofran given. CXr with possible RLL opacity, volume overload. IV lasix ordered 10 point ROS performed and neg for all systems except as per HPI - Objective MAR Reviewed: Yes Vital Signs & Weight: Vital Signs (12 hours) Temp Pulse Resp BP BP Pulse Ox 05/13/17 08:45 191/73 H 05/13/17 08:00 98.0 F 95 20 191/73 H 95 05/13/17 04:00 98.4 F 79 21 H 125/68 98 Weight Admit Weight 154 lb 15.759 oz Weight 197 lb 12.8 oz Most Recent Monitor Data Heart Rate from ECG 65 NIBP 168/67 NIBP BP-Mean 95 Respiration from ECG 17 SpO2 100 I&O: 05/12/17 05/13/17 05/14/17 06:59 06:59 06:59 Intake Total 1861 1052 Output Total 5450 625 Balance -3589 427 Result Diagrams: 05/12/17 05:11 05/13/17 04:10 Radiology Reviewed by me: Yes Phys Exam - Physical Examination ill appearing HEENT: PERRLA, moist MMs, sclera anicteric, oral pharynx no lesions Neck: no nodes, no JVD, supple, full ROM coarse rales bilaterally, no wheezes, rhonchi Cardiovascular: RRR, no significant murmur, no rub Gastrointestinal: soft, non-tender, no distention, positive bowel sounds Musculoskeletal: pulses present, edema present Neurological: non-focal, normal sensation, moves all 4 limbs Lymphatic: no nodes Psychiatric: normal affect, A&O x 3 Skin: no rash, normal turgor, cap refill <2 seconds Dx/Plan (1) Hyponatremia Code(s): E87.1 - HYPO-OSMOLALITY AND HYPONATREMIA Status: Acute Comment: Dr. Meraz signed off. Na bumpecd to 124 today. stop NS, ithink shes getting overloaded. NaCl Tabs ordered BID, recheck in AM. Starting to get a little volume up. Stop IV fluids, lasix prn (2) SIADH (syndrome of inappropriate ADH production) Status: Acute Comment: single dose of tolvaptan today (3) Sacral fracture Code(s): S32.10XA - UNSP FRACTURE OF SACRUM, INIT ENCNTR FOR CLOSED FRACTURE Status: Acute Qualifiers: Encounter type: initial encounter Zone of sacrum fracture: unspecified portion of sacrum Fracture type: closed Qualified Code(s): S32.10XA - Unspecified fracture of sacrum, initial encounter for closed fracture Comment: pain control, OOB and ambulate with PT. to SNF in [place] for rehab (4) Leukocytosis Code(s): D72.829 - ELEVATED WHITE BLOOD CELL COUNT, UNSPECIFIED Status: Resolved Comment: Uncertain source, reviewing UA no significant evidence for UTI. Suspect all clinical symptoms from hyponatremia. Will hold on abx for now. 11.5 on 05/10 - Plan cont current plan of care, continue antibiotics, PT/OT, respiratory therapy, out of bed/ambulate, DVT proph w/heparin * .
--- NOTE | 2017-05-13 17:37 | PRG ---
DATE OF SERVICE: 05/13/2017 In ER, appears to be somewhat encephalopathic this morning. OBJECTIVE: VITAL SIGNS: Respiration is 20, sats are 90% on 2 liters, blood pressure is elevated 190/73, tempera ture 98. CHEST: Decreased breath sounds, no wheezing. CARDIAC: Normal S1, S2. ABDOMEN: Soft. No masses. . She appears to be jaundiced. Chest x-ray shows small bilateral pleural effusion. IMPRESSION: 1. Hyponatremia. 2. Hypothyroidism. Order liver function profile. Otherwise, comfort care, supportive care, placement.
[2017-05-14 05:02] LABS: #Basophils 0.1 thou/uL (0.0-0.2); #Lymphocytes 2.3 thou/uL (1.20-3.40); #Monocytes 0.9 thou/uL (0.11-0.59); #Neutrophils 10.4 thou/uL (1.40-6.50); %Basophils 0.4 % (0.0-1.0); %Eosinophils 0.2 % (0.0-10.0); %Lymphocytes 16.9 % (21.0-51.0); %Monocytes 6.3 % (0.0-10.0); %Neutrophils 76.2 % (42.0-75.0); Hemoglobin 10.2 g/dL (12.0-16.0); Mean Corpuscular HGB CONC 31.5 g/dL (32.0-36.0); Mean Corpuscular Hemoglobin 25.9 pg (27.0-31.0); Mean Corpuscular Volume 82.2 fl (81.0-99.0); Mean Platelet Volume 6.4 fL (7.4-10.4); Platelet Count 355 thou/uL (130-400); RBC Distribution Width 17.9 % (11.5-14.5); Red Blood Cell (RBC) Count 3.96 mill/uL (4.20-5.40); White Blood Cell (WBC) Count 13.7 thou/uL (4.8-10.8)
[2017-05-14] MEDS: Levothyroxine 175 MCG TAB PO SCH (05:23)
[2017-05-14 05:29] LABS: Anion Gap 11 mmol/L (10-20); BUN (Urea Nitrogen) 22 mg/dL (9.8-20.1); Calc. Creatinine Clearance 88 mL/min (70-130); Calcium 8.9 mg/dL (7.8-10.44); Carbon Dioxide 35 mmol/L (23-31); Chloride 84 mmol/L (98-107); Estimated GFR-MDRD 89; Glucose 111 mg/dL (83-110); Magnesium 1.7 mg/dL (1.6-2.6); Potassium 3.3 mmol/L (3.5-5.1); Sodium 127 mmol/L (136-145)
[2017-05-14] MEDS ORDERED: Pantoprazole 40 MG VIAL IVP SCH (09:00)
[2017-05-14] MEDS: Sodium Chloride 1 GM TAB PO SCH ×2 (09:09→21:37)
[2017-05-14] MEDS: Metoprolol Tartrate 100 MG TAB PO SCH ×2 (09:09→21:36)
[2017-05-14] MEDS: Enoxaparin Sodium 40 MG/0.4 ML SYRINGE SC SCH (09:10)
[2017-05-14] MEDS: Docusate 100 MG CAP PO SCH ×2 (09:10→21:36)
[2017-05-14] MEDS: cloNIDine 0.2 MG TAB PO SCH ×2 (09:11→21:36)
[2017-05-14] MEDS: Gabapentin 100 MG CAP PO SCH ×2 (09:11→21:36)
[2017-05-14] MEDS: Cyclobenzaprine 10 MG TAB PO SCH ×3 (09:11→21:35)
[2017-05-14 09:57] LABS: ALT (SGPT) 245 U/L (8-55); AST (SGOT) 225 U/L (5-34); Albumin 2.8 g/dL (3.4-4.8); Alkaline Phosphatase 501 U/L (40-150); Bilirubin, Direct 1.8 mg/dL (0.1-0.3); Bilirubin, Total 2.4 mg/dL (0.2-1.2); Protein, Total 5.2 g/dL (6.0-8.3)
[2017-05-14] MEDS: Potassium Chloride 20 MEQ TAB PO SCH ×3 (10:18→18:49)
[2017-05-14] MEDS: Furosemide 40 MG/4 ML VIAL SLOW IVP SCH (10:18)
--- NOTE | 2017-05-14 12:58 | PDOC.PN ---
- Subjective Encounter Start Date: 05/14/17 Encounter Start Time: 10:20 Pt look much better today, less jaundice, no abd pain, no N/v, no F/c, no CP, still a little SOB. LFTs ysterdya with acut elevation of ASt, ALT, Alk phos, and T/Dbili frm admit. U/S ordered and done earlier, awaiting results. LFTs today better, less bd discomfort. 10 point ROs perfomred and neg for all systems except as per HPI - Objective MAR Reviewed: Yes Vital Signs & Weight: Vital Signs (12 hours) Temp Pulse Resp BP BP Pulse Ox 05/14/17 09:11 149/78 H 05/14/17 08:00 97.6 F 95 16 05/14/17 07:16 97.6 F 95 16 149/78 H 96 Weight Admit Weight 154 lb 15.759 oz Weight 202 lb 8 oz Most Recent Monitor Data Heart Rate from ECG 65 NIBP 168/67 NIBP BP-Mean 95 Respiration from ECG 17 SpO2 100 I&O: 05/13/17 05/14/17 05/15/17 06:59 06:59 06:59 Intake Total 1052 1010 Output Total 625 1225 Balance 427 -215 Result Diagrams: 05/14/17 03:52 05/14/17 03:52 Radiology Reviewed by me: Yes Phys Exam - Physical Examination Constitutional: NAD HEENT: PERRLA, moist MMs, sclera anicteric, oral pharynx no lesions Neck: no nodes, no JVD, supple, full ROM Respiratory: no wheezing, no rhonchi, clear to auscultation bilateral bibasilar rales stable to improved Cardiovascular: RRR, no significant murmur, no rub Gastrointestinal: soft, no distention, positive bowel sounds TTP R>L UQ Musculoskeletal: pulses present, edema present Neurological: non-focal, normal sensation, moves all 4 limbs Lymphatic: no nodes Psychiatric: normal affect, A&O x 3 Skin: no rash, normal turgor, cap refill <2 seconds Dx/Plan (1) Hyponatremia Code(s): E87.1 - HYPO-OSMOLALITY AND HYPONATREMIA Status: Acute Comment: Dr. Meraz signed off. Na bumpecd to 127 today After a single dose of tolvaptan. stop NS, ithink shes getting overloaded. NaCl Tabs ordered BID, recheck in AM. Lasix daily for another couple of days (2) SIADH (syndrome of inappropriate ADH production) Status: Acute Comment: single dose of tolvaptan 05/13 eith slight increase in Na (3) Sacral fracture Code(s): S32.10XA - UNSP FRACTURE OF SACRUM, INIT ENCNTR FOR CLOSED FRACTURE Status: Acute Qualifiers: Encounter type: initial encounter Zone of sacrum fracture: unspecified portion of sacrum Fracture type: closed Qualified Code(s): S32.10XA - Unspecified fracture of sacrum, initial encounter for closed fracture Comment: pain control, OOB and ambulate with PT. to SNF in [place] for rehab (4) Leukocytosis Code(s): D72.829 - ELEVATED WHITE BLOOD CELL COUNT, UNSPECIFIED Status: Resolved Comment: Uncertain source, reviewing UA no significant evidence for UTI. Suspect all clinical symptoms from hyponatremia. Will hold on abx for now. 11.5 on 05/10 - Plan cont current plan of care, plan discussed w/ family, continue antibiotics, PT/OT , out of bed/ambulate * .
--- NOTE | 2017-05-14 14:37 | ULT ---
ABDOMINAL ULTRASOUND COMPLETE: HISTORY: An 87-year-old female with a history of elevated LFTs. FINDINGS: There is at least one large gallstone within the gallbladder which is nonmobile and noted in the neck of the gallbladder. The gallbladder wall is somewhat thickened and heterogeneous in echogenicity. Common bile duct 0.6 cm. Liver echogenicity is somewhat coarse. No ductal dilatation. Visualized p ancreas, IVC, aorta, and spleen are unremarkable. No renal hydronephrosis. IMPRESSION: Cholelithiasis with at least one large gallstone which appears to be lodged within the neck of the ga llbladder and is nonmobile. Minimally thickened gallbladder wall at 0.4 cm. Common bile duct 0.6 cm . POS: RUDYH
--- NOTE | 2017-05-14 18:32 | PRG ---
DATE OF SERVICE: 05/14/2017 SUBJECTIVE: Milagro Diamond appears to do better, though she is clearly jaundiced . Total biliru bin was 2.5, direct bilirubin 1.8. AST is 225, ALT 245. Sodium is improved to 127, potassium 3.3, w diane count 13,000, platelet count is normal. OBJECTIVE: VITAL SIGNS: Blood pressure 149/78, sats 96% on 2 liters, temperature 98. CHEST: Decreased breath sounds, no wheezing. CARDIAC: Normal S1, S2. ABDOMEN: Soft. No masses. IMPRESSION: 1. Hyponatremia, resolved. 2. Chronic pain. 3. Abnormal liver function tests. LABORATORY DATA: Await input from ultrasound of the abdomen. PLAN: Continue PT. Patient is a DNR. Pulmonary will follow at a distance. Please call if needed.
[2017-05-15 04:49] LABS: ALT (SGPT) 157 U/L (8-55); AST (SGOT) 84 U/L (5-34); Alkaline Phosphatase 418 U/L (40-150); Anion Gap 13 mmol/L (10-20); BUN (Urea Nitrogen) 16 mg/dL (9.8-20.1); Bilirubin, Direct 1.2 mg/dL (0.1-0.3); Bilirubin, Total 1.7 mg/dL (0.2-1.2); Calc. Creatinine Clearance 94 mL/min (70-130); Calcium 8.7 mg/dL (7.8-10.44); Carbon Dioxide 31 mmol/L (23-31); Chloride 90 mmol/L (98-107); Estimated GFR-MDRD Greater than 90; Globulin 2.6 g/dL (2.4-3.5); Glucose 109 mg/dL (83-110); Magnesium 1.9 mg/dL (1.6-2.6); Potassium 4.7 mmol/L (3.5-5.1); Protein, Total 5.6 g/dL (6.0-8.3); Sodium 129 mmol/L (136-145)
[2017-05-15 05:12] LABS: #Eosinphils 0.1 thou/uL (0.0-0.7); #Lymphocytes 2.4 thou/uL (1.20-3.40); #Monocytes 0.9 thou/uL (0.11-0.59); %Basophils 0.3 % (0.0-1.0); %Eosinophils 0.7 % (0.0-10.0); %Lymphocytes 23.1 % (21.0-51.0); %Neutrophils 66.9 % (42.0-75.0); Hemoglobin 10.2 g/dL (12.0-16.0); Mean Corpuscular HGB CONC 30.9 g/dL (32.0-36.0); Mean Corpuscular Hemoglobin 25.6 pg (27.0-31.0); Mean Corpuscular Volume 82.8 fl (81.0-99.0); Platelet Count 267 thou/uL (130-400); RBC Distribution Width 18.1 % (11.5-14.5); White Blood Cell (WBC) Count 10.4 thou/uL (4.8-10.8)
[2017-05-15] MEDS: Levothyroxine 175 MCG TAB PO SCH (06:29)
[2017-05-15] MEDS: Sodium Chloride 1 GM TAB PO SCH (08:07)
[2017-05-15] MEDS: Metoprolol Tartrate 100 MG TAB PO SCH (08:07)
[2017-05-15] MEDS: Gabapentin 100 MG CAP PO SCH (08:07)
[2017-05-15] MEDS: Cyclobenzaprine 10 MG TAB PO SCH ×2 (08:07→15:52)
[2017-05-15] MEDS: Enoxaparin Sodium 40 MG/0.4 ML SYRINGE SC SCH (08:07)
[2017-05-15] MEDS: Docusate 100 MG CAP PO SCH (08:07)
[2017-05-15] MEDS: Furosemide 40 MG/4 ML VIAL SLOW IVP SCH (08:08)
[2017-05-15] MEDS: cloNIDine 0.2 MG TAB PO SCH (08:08)
[2017-05-15 08:11] VITALS: BP 138/76; TEMP 98
--- NOTE | 2017-05-15 15:14 | DIS ---
DATE OF ADMISSION: 05/07/2017 DATE OF DISCHARGE: 05/15/2017 PRIMARY CARE PHYSICIAN: Dr. Saúl Roth in [facility]. DISCHARGE DIAGNOSES: 1. Hyponatremia. 2. 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 3. Gallstones. 4. Probable choledocholithiasis with resolution. 5. Fall due to weakness. 6. Sacral fracture, nonoperative. 7. Physical deconditioning. 8. Transient elevation of liver function tests, likely secondary to choledocholithiasis. 9. Pulmonary edema. 10. Essential hypertension. 11. Hypothyroidism. CONSULTATIONS: 1. Pulmonary Critical Care, Dr. Joss Cisneros. 2. Nephrology, Dr. Ramesh Meraz. HISTORY AND PHYSICAL: Ms. Diamond is a very pleasant 87-year-old female with the above history, who presented to the emergency department on 05/07/2017 after a fall and pain. She had a fall and was d iagnosed with sacral fractures and was initially admitted directly to rehab for further strengthening . Over there, pain was poorly controlled and they did labs, because she has become more and more let hargic and weak and showed a sodium level of 115. She denied any dizziness, nausea, vomiting at that time, but was sent back to the emergency department for admission and treatment. EKG and evaluation were unremarkable, CT of her back shows a sacral fracture and some cholelithiasis, but otherwise no signs of cholecystitis. She had negative pain or Newell sign at that time. She wa s subsequently admitted to the hospital. HOSPITAL COURSE: The patient was seen and examined by Dr. Dez Ann and admitted to the hospital. Nephrology was consulted and was agreeable to see her. She was found to have urinary tract infectio n, and was started on antibiotics and white blood cell count was elevated, concerning for pyelonephri tis. She was started on saline 75 mL per hour and placed on a 1200 mL fluid restriction. Nephrology was consulted. Overnights, 05/07-05/08, the patient was taken over by Dr. Charles Kong. At that point, she was noted to have a sodium slightly improved to 117 and her white blood cell count was down to 14.2. She is rogers ving pain with bowel movements and some blister on the left lip, but subsequently with still in too m uch pain to get out of bed. On 05/09/2017, I took the case over. She was having pain, but down from a 10 to an 8, still feeling weak, and sodium was improved from 117-120. By 05/10/2017, the patient was being seen by Nephrology, who was managing her fluids and electrolytes . She was feeling better and sodium was largely unchanged. She was okay to transfer out of the ICU and was sent to the medical floor. From 05/11 to 05/14, the patient continued to improve. Sodium slowly increased from 120-124. On , she had some nausea and vomiting and some belly pain. She appeared jaundiced. Liver functions w ere obtained that showed her AST, ALT, alkaline phosphatase, and bilirubin to have increased by almos t 10 folds since admission. Ultrasound was obtained that showed gallstones, and a possible obstructi on of the bladder neck, but a normal common bile duct. No pericholecystic fluid, no Newell sign, and has a gallbladder wall that was minimally thickened. It was felt that she probably passed a gallsto ne. It was in the process, as repeat liver functions on 05/14 were improved. The patient worked wit h PT, was having more controlled pain and subsequently today sodium is up to 129. She was approved t o go to a rehab facility in [place] and was eating and drinking, although improved, likely not as muc h as she needs. She was encouraged to work with physical therapy, and improve her intake. She was, otherwise, stable for discharge to rehabilitation. PENDING ITEMS: 1. The patient does have cholelithiasis without evidence of cholecystitis. I suspect she had choled ocholithiasis and spontaneously passed a stone, as she had elevation of her LFTs, and the resolution with almost complete improvement. She would need repeat LFTs done and likely I will refer her to a s urgeon when she is stronger. 2. Hyponatremia. Sodium here was 129. She has a single dose of tolvaptan on 05/13/2017, sodium has gone from 124-129 since that time. She is on a 2 liter fluid restriction and getting sodium chlorid e tablets twice a day. PHYSICAL EXAMINATION: The patient was seen and examined on the day of discharge. Discharge plan and disposition discussed with the patient and her son [id number] at the bedside. DISCHARGE MEDICATIONS: 1. Tylenol 650 mg p.o. q.6 hours as needed. 2. Albuterol sulfate 2.5 mg nebulized q.i.d. p.r.n. wheezing. 3. Amlodipine 5 mg daily. 4. Aspirin 325 mg daily. 5. Benzocaine as needed. 6. Bisacodyl 10 mg per rectum daily. 7. Calcium carbonate. 8. Tums 1000 mg every 4 hours as needed for indigestion. 9. Celexa 20 mg daily. 10. Clonidine 0.1 mg p.o. q.6 hours. 11. Flexeril 10 mg p.o. t.i.d. p.r.n. muscle spasm. 12. Dextromethorphan Hbr 10 mL p.o. q.4 hours p.r.n. cough. 13. Benadryl 25 mg p.o. q.6 hours rash or itching. 14. Colace 100 mg p.o. b.i.d. 15. Fluticasone 100 mcg blister with delivery 1 inhalation daily. 16. Lasix 20 mg p.o. b.i.d. 17. Gabapentin 100 mg p.o. b.i.d. 18. HCTZ 12.5 mg daily. 19. Hydrocodone to continue 1-2 tablets of the 5/325 every 4 hours as needed for [id number] pain. 20. Levothyroxine 150 mcg daily. 21. Metoprolol tartrate 100 mg p.o. b.i.d. 22. Zofran 4-8 mg every 4 hours as needed for nausea and vomiting. 23. Protonix 40 mg daily. 24. MiraLax 17 grams p.o. daily. 25. Sodium chloride 1 gram tablets 1 p.o. b.i.d. 26. Trazodone 50 mg p.o. at bedtime. FOLLOWUP APPOINTMENTS: Primary care physician within a week. DISCHARGE CONDITION: Stable. DISPOSITION: Being discharged to [facility] in [place]. DISCHARGE ACTIVITY: Per orthopedic and cardiopulmonary limits. DISCHARGE DIET: Heart healthy recommended.
== END 2017-05-15 17:15 | DRG 643 ==
LOC: ERS 15:10 → CCU 18:56 → IMCU/EMU 05-10 14:25 → T4-A 05-11 10:25
PROVIDERS: ADMIT Family Medicine; ATTEND Family Medicine
DX: E22.2 Syndrome of inappropriate secretion of antidiuretic hormone (principal); G93.40 Encephalopathy, unspecified; I48.91 Unspecified atrial fibrillation; E66.01 Morbid (severe) obesity due to excess calories; R17 Unspecified jaundice; I13.0 Hypertensive heart and chronic kidney disease with heart failure and stage 1 through stage 4 chronic kidney disease, or unspecified chronic kidney disease; I50.9 Heart failure, unspecified; E86.0 Dehydration; D64.9 Anemia, unspecified; K80.50 Calculus of bile duct without cholangitis or cholecystitis without obstruction; N39.0 Urinary tract infection, site not specified; S32.10XD Unspecified fracture of sacrum, subsequent encounter for fracture with routine healing; N18.2 Chronic kidney disease, stage 2 (mild); Z68.29 Body mass index [BMI] 29.0-29.9, adult; E03.9 Hypothyroidism, unspecified; Z66 Do not resuscitate
CPT/HCPCS: 36415; 36416; 51702; 71045; 72131; 76700; 76770; 80048; 80053; 80076; 81015; 82533; 82550; 82553; 83690; 83735; 83880; 83930; 83935; 84300; 84443; 84484; 85025; 85610; 85730; 90471; 90682; 93005; 96361; 96374; 96375; A4216; C9113; G0008; G8978-GP-CM; G8979-GP-CK; G8987-GO-CM; G8988-GO-CK; G8996-GN-CJ; G8997-GN-CJ; G8998-GN-CJ; J0360; J0696; J1650; J1885; J1940; J2270; J2405; J3010; J7131; Q2036